=== PATIENT | male | born 1960 | race Caucasian/White ===

== ENCOUNTER 2022-11-16 05:52 | Observation (INO) ==
--- NOTE | 2022-10-19 15:38 | PAT Medication Instructions ---
Medication Instructions Date of Service October 19, 2022 Home Medications Medication Instructions Recorded tizanidine 4 mg tablet 4 mg PO BID PRN muscle spasticity 09/23/22 #30 tabs albuterol sulfate 90 mcg/actuation aerosol inhaler 1 inh inhalation UD PRN SHORT OF BREATH duloxetine 60 mg capsule,delayed release 60 mg PO HS ergocalciferol (vitamin D2) 1,250 mcg (50,000 unit) capsule 5,000 mcg PO WK gabapentin 400 mg capsule 400 mg PO TID ibuprofen 800 mg tablet 800 mg PO TID lamotrigine 100 mg tablet 100 mg PO QPM omeprazole 20 mg capsule,delayed release 20 mg PO HS rosuvastatin 20 mg tablet 20 mg PO HS tizanidine 4 mg tablet 4 mg PO BID PRN muscle spasticity Medical Marijuana 1 dose inhalation UD PRN Pain dulaglutide 4.5 mg/0.5 mL subcutaneous pen injector (Trulicity) 4.5 mg subcut WK gabapentin 800 mg tablet 800 mg PO TID olmesartan 40 mg-hydrochlorothiazide 25 mg tablet (Benicar HCT) 1 tab PO HS Continue as directed ergocalciferol (vitamin D2) 1,250 mcg (50,000 unit) capsule 5,000 mcg PO WK (just do not take morning of surgery) dulaglutide 4.5 mg/0.5 mL subcutaneous pen injector (Trulicity) 4.5 mg subcut WK ASK your surgeon for instructions ibuprofen 800 mg tablet 800 mg PO TID DO NOT take the morning of surgery tizanidine 4 mg tablet 4 mg PO BID PRN muscle spasticity Medical Marijuana 1 dose inhalation UD PRN Pain Take morning of surgery With a small sip of water, OTHERWISE NOTHING TO EAT OR DRINK AFTER MIDNIGHT: albuterol sulfate 90 mcg/actuation aerosol inhaler 1 inh inhalation UD PRN SHORT OF BREATH (use if needed; please bring with you to hospital day of surgery if possible) gabapentin 400 mg capsule 400 mg PO TID gabapentin 800 mg tablet 800 mg PO TID Take evening before surgery albuterol sulfate 90 mcg/actuation aerosol inhaler 1 inh inhalation UD PRN SHORT OF BREATH (if needed) duloxetine 60 mg capsule,delayed release 60 mg PO HS gabapentin 400 mg capsule 400 mg PO TID lamotrigine 100 mg tablet 100 mg PO QPM omeprazole 20 mg capsule,delayed release 20 mg PO HS rosuvastatin 20 mg tablet 20 mg PO HS tizanidine 4 mg tablet 4 mg PO BID PRN muscle spasticity (if needed) Medical Marijuana 1 dose inhalation UD PRN Pain (if needed) gabapentin 800 mg tablet 800 mg PO TID olmesartan 40 mg-hydrochlorothiazide 25 mg tablet (Benicar HCT) 1 tab PO HS Other Notes If you have any questions please call us at [phone] or [phone] or [phone] or [phone]
--- NOTE | 2022-10-21 14:13 | Anesthesiology Consultation ---
Date of Service October 21, 2022 Assessment & Plan (1) Encounter for pre-operative examination: Chart Review Chart Review: Pending: Refer to Additional Notes / Consult section (pending response from PCP and improvement in Na ) and Patient seen in Pre Admission Testing -Optimization to PCP re: significant hyponatremia- need response. - Discussed with Dr. Newman- Na of 122 - did speak with PCP office late afternoon on 10/21/22- patient's last Na was 131 per PCP records. PCP did recommend patient go to ER for evaluation. Did call patient and recommend he go to ER. Pt adamantly refused- pt voices understanding he at risk for seizure, , etc. Pt states he will "eat more salt." Will follow up with PCP (send optimization) - will need Na correction prior to surgery. PCP office also called 10/22/22 to communicate patient's ER refusal. (Incident report done in [facility] system) - Check BSG AM DOS Per PAT appt on 10/21/22, patient denies any recent travel or large group activities. Pt is vaccinated for Covid. Will leave to surgeon's discretion if preop Covid testing needed. Educated on importance of using Covid precautions one week prior to surgery Teaching & Discussion Pre-Anesthesia Teaching/Discussion Notes: Instructed NPO after midnight before surgery,except medications with 15 cc of water. Medication instructions provided according to the PAT guidelines. History Surgery Operation Date: 11/16/22 07:15 Proposed Procedures p C5-6 and C6-7 Cervical Disc Arthroplasty - Charlie Pollack MD Height/Weight Height: 6 ft 1 in Weight: 104.6 kg Allergies Allergy/AdvReac Type Severity Reaction Status Date / Time fenofibrate [From Tricor] Allergy Severe ELEVATED Verified 10/19/22 14:20 LIVER ENZYMES metformin AdvReac Mild Gastrointestinal Verified 10/19/22 14:20 Upset Opioids - Morphine Analogues AdvReac Mild ITCHING Verified 10/19/22 14:20 Medications Home Medications Medication Instructions Recorded Confirmed Last Taken albuterol sulfate 90 mcg/actuation 1 inh inhalation UD PRN SHORT OF 09/23/22 10/19/22 Unknown aerosol inhaler BREATH duloxetine 60 mg capsule,delayed 60 mg PO HS 09/23/22 10/19/22 Unknown release ergocalciferol (vitamin D2) 1,250 5,000 mcg PO WK 09/23/22 10/19/22 Unknown mcg (50,000 unit) capsule gabapentin 400 mg capsule 400 mg PO TID 09/23/22 10/19/22 Unknown ibuprofen 800 mg tablet 800 mg PO TID 09/23/22 10/19/22 Unknown lamotrigine 100 mg tablet 100 mg PO QPM 09/23/22 10/19/22 Unknown omeprazole 20 mg capsule,delayed 20 mg PO HS 09/23/22 10/19/22 Unknown release rosuvastatin 20 mg tablet 20 mg PO HS 09/23/22 10/19/22 Unknown tizanidine 4 mg tablet 4 mg PO BID PRN muscle spasticity 09/23/22 10/19/22 Unknown #30 tabs Medical Marijuana 1 dose inhalation UD PRN Pain 10/19/22 10/19/22 Unknown dulaglutide 4.5 mg/0.5 mL 4.5 mg subcut WK 10/19/22 10/19/22 Unknown subcutaneous pen injector (Trulicity) gabapentin 800 mg tablet 800 mg PO TID 10/19/22 10/19/22 Unknown olmesartan 40 1 tab PO HS 10/19/22 10/19/22 Unknown mg-hydrochlorothiazide 25 mg tablet (Benicar HCT) Past Medical History Medical History (Updated 10/22/22 @ 15:52 by Luz Maria Peter PA-C) Arthritis Asthma LAST USED RESCUE INHALER>1 WEEK AGO BREATHING STABLE Degenerative disc disease Diabetes mellitus, type 2 Glucose well controlled GERD (gastroesophageal reflux disease) Well controlled and stable High cholesterol Hip pain Bilateral History of COVID-19 "HAD IT 3 TIMES">LAST HAD 4 MONTHS AGO (UNSURE IF HAS ANY MCFP PROBLEMS FROM COVID) POSSIBLE RESIDUAL MENTAL FOG AND FATIGUE Hx of squamous cell carcinoma S/p removal Hypertension Peripheral neuropathy Mostly noted to feet Post traumatic stress disorder Restless leg syndrome Stable Right knee pain Torn MCL/ACL - ongoing right knee pain Seizures "PASSES OUT" LAST EPISODE 2015 (DOES NOT FOLLOW WITH NEUROLOGY) ON LAMICTAL Spinal stenosis Exercise / Class Metabolic Activity II 4-5 Yardwork/Stairs/Walk up hill (one flight of stairs - no chest pain or SOB) Past Family History Family History (Updated 10/19/22 @ 14:31 by Stephanie Felix RN) Other No family history of adverse response to anesthesia Past Surgical History Surgical History (Updated 10/21/22 @ 14:08 by Luz Maria Peter PA-C) H/O squamous cell carcinoma excision History of colonoscopy History of esophagogastroduodenoscopy (EGD) History of surgery on lower extremity LEFT FEMUR TENDON REPAIR- 2019 [place] teeth removed Past Anesthesia History No Hx of Anesthesia Complications and No Family Hx of Anesthesia Complications History of PONV No Hx of PONV and No Hx of Motion Sickness Social History Smoking Status: Never smoker tobacco type: smokeless tobacco Do You Dip or Chew Tobacco: Yes (1 can/2-4 days- ADVISED) Hx Alcohol Use: Yes alcohol intake frequency: holidays/special occasions only Hx Substance Use: No Review of Systems Patient denies chest pain, shortness of breath, dyspnea on exertion, reflux, cough, wheezing, palpitations. No hx of stroke, IL, apnea/snoring. No hx of blood clots or blood transfusions Physical Exam Vital Signs VITALS BP 111/72 P 78 TEMP 98.3 SP02 95% RESP 16 Constitutional no acute distress ENMT Mouth: no TMJ clicking Thyromental Distance: > or= 3.5 Finger Breadths Mallampati Class: II Neck neck extension not limited Respiratory normal respiratory effort; no respiratory distress Auscultation: lungs clear to auscultation bilaterally; no wheezes Cardiovascular Rate/Rhythm: regular rate and regular rhythm Heart Sounds: no murmur Vessels: no carotid bruit Musculoskeletal Spine: no pain with cervical ROM Extremities: extremities normal to inspection Psychiatric Orientation: alert Lab Results Anesthesia Preop Results Results Anesthesia Widget: WBC 7.00 K/ul (4.8-10.8) 10/21/22 Hgb 13.6 g/dl (14.0-18.0) L 10/21/22 Hct 36.9 % (42.0-52.0) L 10/21/22 Plt 319 K/uL (130-400) 10/21/22 Na 122 mmol/L (136-145) L 10/21/22 K 4.1 mmol/L (3.5-5.1) 10/21/22 Cl 90 mmol/L (98-107) L 10/21/22 CO2 23 mmol/L (21-32) 10/21/22 BUN 22 mg/dl (6-23) 10/21/22 Creat 1.01 mg/dl (0.6-1.4) 10/21/22 Glucose Level 135 mg/dl (70-99(Fasting)) H 10/21/22 PT 10.8 Seconds (9.0-12.0) 10/21/22 PTT 29.6 Seconds (21.0-31.0) 10/21/22 INR 1.0 (0.9-1.1) 10/21/22 HA1c 6.5 % (4.5-5.6) H 10/21/22 Blood Type O Positive 10/21/22 Antibody Screen NEGATIVE 10/21/22 Testing Laboratory Results Significant hyponatremia- patient refused ER evaluation- optimization note sent to PCP Electrocardiogram Date: 10/21/22 NSR with sinus arrhythmia at 81bpm Left axis deviation COVID-19 Risk Screen Screening Information COVID-19 Screen Date: 10/21/22 Exposure 21 Days Family/Household +COVID Last 21 Days: No Exposure 10 Days Any COVID Exposure Last 10 Days: No Symptoms Last 10 Days Experienced COVID Sx Last 10 Days: No + COVID 0-90 Days COVID + in Last 0-90 Days: No Risk Plan COVID Risk Plan: No Risk Identified Patient Education COVID Preop Screening Education Complete: Yes
[2022-11-16] MEDS ORDERED: LR 60ML/HR IV SCH (06:00)
[2022-11-16] MEDS ORDERED: LR 15ML/HR IV SCH (06:00)
[2022-11-16] MEDS ORDERED: ceFAZolin 2000MG 2,000 MG/15 ML SYR IV SCH (06:00)
[2022-11-16] MEDS ORDERED: MIDAZOLAM HCL 1 MG/ML 2ML VIAL ONE (06:50)
[2022-11-16] MEDS ORDERED: fentaNYL citrate PF 100 MCG/2 ML VIAL ONE ×2 (06:50→08:44)
[2022-11-16] MEDS ORDERED: VANCOMYCIN HCL 1000MG/20ML VIAL ONE (07:03)
[2022-11-16] MEDS ORDERED: GELATIN SPONGE SZ 100 ONE (07:03)
[2022-11-16] MEDS ORDERED: THROMBIN 5000 UNITS KIT ONE (07:03)
--- NOTE | 2022-11-16 07:06 | History & Physical Report ---
Date of Service November 16, 2022 History of Present Illness Primary Care Provider: [facility] returns for follow-up status post his cervical MRI repeated on September 29. He reports no new changes. He has a combination of pain in both shoulders and both arms and neck, the pain is more so though on the left side and the numbness and tingling is more to the left side also. He reports the tramadol did not help to any significant extent, no other issues reported. Exam revealed that with range of motion of both his shoulders he did not have a significant amount of reproduction of his left shoulder pain outside of mildly reproduced with the empty can test. Review of cervical MRI images from September 29, 2022, this is my separate review of the study from [facility] in [place], this reveals the patient to have degenerative changes notably at C5-6 and C6-7, there is loss of disc base height and spondylosis evident, there is narrowing in the canal at least in the mild to moderate range with severe foraminal stenosis bilaterally at both levels. C4-5 has a very slight amount of anterolisthesis, the disc base height is maintained at this level and he C2-3 and C3-4 levels. I would consider more moderate foraminal stenosis at the C4-5 level on the left, and mild to low-grade moderate at C3-4. Impression: Cervical disc degeneration along with symptoms consistent with radiculopathy and cervical axial symptomatology. Plan: Today was an extensive discussion with review of the MRI and radiographs and then discussing the treatment options. The patient does have an upcoming EMG nerve conduction study at the beginning of November we will continue with that study, but I then went on to discuss what I think would be appropriate operative treatment in the cervical spine. I related that I think the most significant findings are at C5-6 and C6-7, C4-5 does have some foraminal stenosis and that could be contributing to the pain radiating to the shoulders, but I think there is also a shoulder component to this though it may be low-grade. Also, relative to his upper extremity symptoms there may be a peripheral entrapment component hence us continuing along with the EMG nerve conduction study. At this time I related I would recommend an anterior approach to C5-6 and C6-7, anterior decompression, and disc arthroplasty as the goal, arthrodesis would be the backup if found to be necessary. I went on to explain the differences between the 2 procedures, explaining that I think if we could maintain some motion in the lower 2 segments with the disc arthroplasty that would be to his benefit, but he still may continue to have some change in his upper cervical spine and it could be that the C4-5 level is causing some C5 radiculopathy but we will also wait to see with the EMG nerve conduction study sets. I went on to the discussion about the fact that disc arthroplasty can be only performed at 1 or 2 levels at a time, and we would be addressing the levels with the most amount of foraminal stenosis at this time. The discussion also included discussion of the hospital stay, postoperative course, restrictions, and a discussion of potential risk complications which included discussion of infection, possibilities of neurologic injury, postoperative dysphagia. Went on to explain that anticipating this procedure will help with his upper extremity symptoms at least in part if not significantly, along with at least a portion of the cervical axial symptoms though he may still continue to have some cervical axial symptoms either from the facets or the upper disc levels. I related that for any remaining symptoms the patient may have, we may have to evaluate his shoulders and a more extensive manner with some injections and/or therapy, also see with the EMG nerve conduction study reveals, and additional blocks and/or injections might be necessary if he continues to have axial symptoms. They were in agreement with this plan or to get him scheduled in the near future. Allergies Allergy/AdvReac Type Severity Reaction Status Date / Time fenofibrate [From Tricor] Allergy Severe ELEVATED Verified 11/16/22 06:22 LIVER ENZYMES metformin AdvReac Mild Gastrointestinal Verified 11/16/22 06:22 Upset Opioids - Morphine Analogues AdvReac Mild ITCHING Verified 11/16/22 06:22 Home Medications Medication Instructions Recorded Confirmed Type albuterol sulfate 90 mcg/actuation 1 inh inhalation UD PRN SHORT OF 09/23/22 11/16/22 History aerosol inhaler BREATH duloxetine 60 mg capsule,delayed 60 mg PO HS 09/23/22 11/16/22 History release ergocalciferol (vitamin D2) 1,250 5,000 mcg PO WK 09/23/22 11/16/22 History mcg (50,000 unit) capsule gabapentin 400 mg capsule 400 mg PO TID 09/23/22 11/16/22 History ibuprofen 800 mg tablet 800 mg PO TID 09/23/22 11/16/22 History lamotrigine 100 mg tablet 100 mg PO QPM 09/23/22 11/16/22 History omeprazole 20 mg capsule,delayed 20 mg PO HS 09/23/22 11/16/22 History release rosuvastatin 20 mg tablet 20 mg PO HS 09/23/22 11/16/22 History tizanidine 4 mg tablet 4 mg PO BID PRN muscle spasticity 09/23/22 11/16/22 Rx #30 tabs Medical Marijuana 1 dose inhalation UD PRN Pain 10/19/22 11/16/22 History dulaglutide 4.5 mg/0.5 mL 4.5 mg subcut WK 10/19/22 11/16/22 History subcutaneous pen injector (Trulicity) gabapentin 800 mg tablet 800 mg PO TID 10/19/22 11/16/22 History olmesartan 40 1 tab PO HS 10/19/22 11/16/22 History mg-hydrochlorothiazide 25 mg tablet (Benicar HCT) Past Med/Surg History Medical History (Updated 10/22/22 @ 15:52 by Luz Maria Peter PA-C) Arthritis Asthma LAST USED RESCUE INHALER>1 WEEK AGO BREATHING STABLE Degenerative disc disease Diabetes mellitus, type 2 Glucose well controlled GERD (gastroesophageal reflux disease) Well controlled and stable High cholesterol Hip pain Bilateral History of COVID-19 "HAD IT 3 TIMES">LAST HAD 4 MONTHS AGO (UNSURE IF HAS ANY FPC PROBLEMS FROM COVID) POSSIBLE RESIDUAL MENTAL FOG AND FATIGUE Hx of squamous cell carcinoma S/p removal Hypertension Peripheral neuropathy Mostly noted to feet Post traumatic stress disorder Restless leg syndrome Stable Right knee pain Torn MCL/ACL - ongoing right knee pain Seizures "PASSES OUT" LAST EPISODE 2015 (DOES NOT FOLLOW WITH NEUROLOGY) ON LAMICTAL Spinal stenosis Surgical History (Updated 10/21/22 @ 14:08 by Luz Maria Peter PA-C) H/O squamous cell carcinoma excision History of colonoscopy History of esophagogastroduodenoscopy (EGD) History of surgery on lower extremity LEFT FEMUR TENDON REPAIR- 2019 [place] teeth removed Family History (Updated 10/19/22 @ 14:31 by Stephanie Felix RN) Other No family history of adverse response to anesthesia Social History Smoking Status: Never smoker Second Hand Exposure: Yes (IN THE PAST>EX- SMOKED); Do You Dip or Chew Tobacco: Yes (1 can/2-4 days- ADVISED); Hx Alcohol Use: Yes Hx Substance Use: No Preferred Language: Syriac Director [employer] Required: No Beliefs That Will Affect Care: None Current Living Situation: Spouse Feels Safe at Home: Yes Safety Concerns: Feels Safe At This Time Assistive Devices: Cane and Glasses Assistive Devices Comment: READING GLASSES Results & Data Results & Data Vital Signs (Past 12 Hours) Vital Signs Temp Pulse Resp BP Pulse Ox O2 Del Method 11/16/22 06:28 36.6 C 82 18 129/79 96 Room Air
--- NOTE | 2022-11-16 07:07 | History & Physical Bridge Note ---
Date of Service November 16, 2022 History & Physical Bridge Note I have examined the patient, reviewed the History & Physical and in the interval since the performance of the History & Physical I have noted the following changes of clinical significance: no changes noted
[2022-11-16] MEDS ORDERED: LIDOCAINE 2% MPF LOCAL 5 ML VIAL ONE (08:29)
[2022-11-16] MEDS ORDERED: GLYCOPYRROLATE 0.2 MG/ML VIAL ONE (08:29)
[2022-11-16] MEDS ORDERED: diphenhydrAMINE 50 MG/ML VIAL ONE (08:29)
[2022-11-16] MEDS ORDERED: PROPOFOL IV EMULSION 10 MG/ML 20 ML VIAL IV ONE (08:29)
[2022-11-16] MEDS ORDERED: ROCURONIUM BROMIDE 10 MG/ML 5 ML VIAL IV ONE ×3 (08:29→10:17)
[2022-11-16] MEDS ORDERED: DEXAMETHASONE SOD INJ 4 MG/ML VIAL ONE (08:29)
[2022-11-16] MEDS ORDERED: NEOSTIGMINE METHYLSULFATE 1 MG/ML 10ML VIAL ONE (08:29)
[2022-11-16] MEDS ORDERED: ONDANSETRON INJ 2 MG/ML 2 ML VIAL ONE ×2 (08:29→12:06)
[2022-11-16] MEDS ORDERED: HYDROmorphone INJ 2 MG/ML SYR/VIAL ONE (08:31)
[2022-11-16] MEDS ORDERED: ONDANSETRON INJ 2 MG/ML 2 ML VIAL IV PRN ×2 (08:44→14:24)
[2022-11-16] MEDS ORDERED: ePHEDrine sulfate 50 MG/ML AMP IV PRN (08:44)
[2022-11-16] MEDS ORDERED: ATROPINE SULFATE 0.1 MG/ML 10ML SYR IV PRN (08:44)
[2022-11-16] MEDS ORDERED: ACETAMINOPHEN 1000 MG/100 ML IV IV ONE (08:58)
[2022-11-16] MEDS ORDERED: SUGAMMADEX SODIUM 200 MG/2 ML VIAL IV ONE (11:10)
[2022-11-16] MEDS ORDERED: FLOSEAL HEMOSTATIC MATRIX 5ML TOP ONE (11:34)
[2022-11-16] MEDS ORDERED: ceFAZolin 330 MG/ML 1 GM VIAL ONE (11:56)
[2022-11-16] MEDS ORDERED: ceFAZolin 2000MG 2,000 MG/15 ML SYR IV ONE (12:08)
[2022-11-16] MEDS ORDERED: KETOROLAC 30 MG/ML VIAL ONE (12:16)
--- NOTE | 2022-11-16 12:35 | Fluoroscopy Report ---
FL cervical 2-3V CLINICAL HISTORY: C5-C6 AND C6-C7 COMPARISON STUDY: Cervical spine radiographs 09/23/2022 FLUOROSCOPY TIME: 286.8 seconds FLUOROSCOPY IMAGES: 8 EXPOSURE DOSE: 412.25 mGy FINDINGS: Retractors are imaged. Discectomy changes are noted within the mid to lower cervical spine, exact numbering is not definitive based on magnification of the images. Note that the images were smith bmitted following completion of the surgery. The operative levels appear to be at C5-C6 and C6-C7. No unexpected opaque foreign bodies identified. IMPRESSION: Fluoroscopic assistance as above. ACT 112: Negative or not required by law. Electronically signed by: Rene Arora M.D. 11/16/2022 12:34 PM
[2022-11-16] MEDS: fentaNYL citrate PF 100 MCG/2 ML VIAL IV PRN ×4 (12:40→12:55)
--- NOTE | 2022-11-16 12:40 | Post Operative Brief Note ---
PG Immediate Post Op with CF Date of Surgery November 16, 2022 Pre & Post Diagnosis Operation Date: 11/16/22 07:15 Pre-Op Diagnosis: Cervical Rediculopathy, Neck Pain Post-Op Diagnosis: Cervical Rediculopathy, Neck Pain I identified the patient and participated in the time-out.: Yes Procedure Operation Date: 11/16/22 07:15 Actual Procedures p C5-6 and C6-7 Cervical Disc Arthroplasty(Not Applicable) - Charlie Pollack MD Surgeon Charlie Pollack MD Manager [place] none Estimated Blood Loss 50 Findings Consistent with Post-Op Diagnosis Specimens Specimen Description: None per surgeon
[2022-11-16] MEDS: HYDROmorphone INJ 1 MG/ML SYRINGE IV PRN ×3 (13:00→13:11)
[2022-11-16] MEDS ORDERED: LABETALOL HCL IV 5 MG/ML 20ML IV ONE (13:16)
[2022-11-16] MEDS ORDERED: LABETALOL HCL IV 5 MG/ML 20ML IV STA (13:16)
[2022-11-16] MEDS ORDERED: LACTATED RINGER'S 1,000 ML IV SCH (14:24)
[2022-11-16] MEDS ORDERED: FAMOTIDINE 20 MG TAB PO PRN (14:24)
[2022-11-16] MEDS ORDERED: diphenhydrAMINE Capsule 25 MG CAP PO PRN (14:24)
[2022-11-16] MEDS ORDERED: ACETAMINOPHEN 500 MG TAB PO PRN (14:24)
[2022-11-16] MEDS ORDERED: tiZANidine HCL 4 MG TABLET PO PRN (14:24)
[2022-11-16] MEDS ORDERED: METOCLOPRAMIDE HCL INJ 5 MG/ML 2 ML VIAL IV PRN (14:24)
[2022-11-16] MEDS ORDERED: NALOXONE HCL 0.4 MG/1 ML VIAL/CARP IV PRN (14:24)
[2022-11-16] MEDS ORDERED: SOD PHOSPHATE/SOD BIPHOSPHATE ENEMA 132 ML BTL PR PRN (14:24)
[2022-11-16] MEDS ORDERED: dexAMETHasone 8 MG in SYRINGE 0 ML IV PRN (14:24)
[2022-11-16] MEDS ORDERED: ERGOCALCIFEROL 50,000 UNITS 1250 MCG CAP PO SCH (14:24)
[2022-11-16] MEDS ORDERED: DO NOT ADMINISTER FLU VACCINE PRN (14:24)
[2022-11-16] MEDS ORDERED: hydrOXYzine HCl 25 MG TAB PO PRN (14:24)
[2022-11-16] MEDS ORDERED: DO NOT ADMINISTER PNEUMOCOCCAL VACCINE PRN (14:24)
[2022-11-16] MEDS ORDERED: MAGNESIUM HYDROXIDE SUSP 30 ML UDC PO PRN (14:24)
[2022-11-16] MEDS ORDERED: ONDANSETRON 4 MG OD TAB PO PRN (14:24)
[2022-11-16] MEDS ORDERED: ACETAMINOPHEN 1,000 MG/100 ML VIAL IV PRN (14:24)
[2022-11-16] MEDS ORDERED: RACEPINEPHRINE 2.25% NEBU SOLN 0.5 ML VIAL INH PRN (14:24)
[2022-11-16] MEDS ORDERED: PROMETHAZINE HCL 12.5 MG in SODIUM CHLORIDE 0.9% 50 ML IV PRN (14:24)
[2022-11-16] MEDS ORDERED: LORazepam 2 MG/1 ML VIAL IV PRN (14:24)
[2022-11-16] MEDS ORDERED: LORazepam 0.5 MG TAB PO PRN (14:24)
[2022-11-16] MEDS ORDERED: ALBUTEROL HFA 8 GM INHALER INH PRN (14:24)
[2022-11-16] MEDS ORDERED: bisacodyL 10 MG SUPP PR PRN (14:24)
[2022-11-16] MEDS ORDERED: ALUMINUM/MAGNESIUM SUSP 30 ML UDC PO PRN (14:24)
--- NOTE | 2022-11-16 14:24 | Anesthesiology Progress Note ---
Date of Service November 16, 2022 Anesthesia Post Procedure Vital Signs Vital Signs: Temp Pulse Pulse Resp BP Pulse Ox O2 Del Method 11/16/22 13:40 91 H 13 164/98 H 96 Room Air 11/16/22 13:10 108 H 20 179/99 H 98 Oxymask 11/16/22 14:00 92 H 13 156/91 H 96 Room Air 11/16/22 13:30 36.3 C L 106 H 10 L 151/90 H 99 Room Air 11/16/22 13:20 108 H 20 120/93 98 Oxymask 11/16/22 13:00 111 H 16 181/99 H 99 Oxymask 11/16/22 12:50 116 H 10 L 174/95 H 98 Oxymask 11/16/22 12:40 117 H 13 183/95 H 96 Oxymask 11/16/22 12:31 36.3 C L 126 H 10 L 175/89 H 99 Oxymask 11/16/22 06:28 36.6 C 82 18 129/79 96 Room Air O2 Flow Rate 11/16/22 13:40 11/16/22 13:10 5 11/16/22 14:00 11/16/22 13:30 11/16/22 13:20 2 11/16/22 13:00 5 11/16/22 12:50 5 11/16/22 12:40 5 11/16/22 12:31 7 11/16/22 06:28 Pain Intensity Neck: Pain Intensity: 4 Transfer of Care Handoff Completed per policy Notes Mental Status: alert / awake / arousable and participated in evaluation Patient Amnestic to Procedure: Yes Nausea / Vomiting: adequately controlled Pain: adequately controlled Airway Patency, RR, SpO2: stable & adequate BP & HR: stable & adequate Hydration State: stable & adequate Anesthetic Complications: no major complications apparent and Pt Satisfied with anesthetic care
[2022-11-16] MEDS: GABAPENTIN 800 MG TAB PO SCH ×2 (15:54→21:08)
[2022-11-16] MEDS: IBUPROFEN 800 MG TAB PO SCH ×2 (15:55→21:09)
[2022-11-16] MEDS: GABAPENTIN 400 MG CAP PO SCH ×2 (15:56→21:09)
[2022-11-16] MEDS: KETOROLAC 30 MG/ML VIAL IV SCH ×2 (15:56→19:44)
[2022-11-16] MEDS: HYDROmorphone INJ 0.5 MG/0.5 ML SYR IV PRN (17:21)
[2022-11-16] MEDS: oxyCODONE/ACETAMINOPHEN 5mg/325mg TAB PO PRN ×2 (19:44→23:52)
[2022-11-16] MEDS ORDERED: ROSUVASTATIN CALCIUM 20 MG TAB PO SCH (21:00)
[2022-11-16] MEDS ORDERED: lamoTRIgine 100 MG TAB PO SCH (21:00)
[2022-11-16] MEDS ORDERED: LOSARTAN/HCTZ 50/12.5MG TAB PO SCH (21:00)
[2022-11-16] MEDS ORDERED: DOCUSATE SODIUM/SENNA 50/8.6MG TAB PO SCH (21:00)
[2022-11-16] MEDS ORDERED: PANTOprazole 40 MG TAB PO SCH (21:00)
[2022-11-16] MEDS ORDERED: DULoxetine HCL 60 MG CAP PO SCH (21:00)
[2022-11-17] MEDS: HYDROmorphone INJ 0.5 MG/0.5 ML SYR IV PRN ×2 (01:24→07:08)
[2022-11-17] MEDS: KETOROLAC 30 MG/ML VIAL IV SCH ×2 (02:25→08:42)
[2022-11-17] MEDS: POLYETHYLENE (MIRALAX) 17 GM PACK PO SCH ×2 (05:19→12:25)
[2022-11-17] MEDS: oxyCODONE/ACETAMINOPHEN 5mg/325mg TAB PO PRN ×2 (05:19→10:27)
--- NOTE | 2022-11-17 08:09 | Hospitalist Consultation ---
Date of Consultation November 17, 2022 Assessment & Plan (1) Hypertension: BP today 164/84 Patient taking BenicarHCT 40/25 at home Rx Hyzaar 50/12.5mg 2 tabs q hs here Continue heart healthy carb consistent low sodium diet (2) Diabetes mellitus, type 2: Last HgbA1C 6.5 - 10/21/22 Continue to follow with PCP (3) Cervical radiculopathy: Post Op day #1 - p C5-6 and C6-7 Cervical Disc Arthroplasty(Not Applicable) - Charlie Pollack MD (4) Asthma: Has albuterol prn use at home (5) Seizures: - Continue Lamictal -follows with PCP (6) High cholesterol: - Continue Rosuvastatin 20mg History of Present Illness Reason for Consultation: medical management of hypertension Attending Physician: Charlie Pollack MD History of Present Illness Jeet Dill is A 62 year old with a past medical history of hypertension, hyper lipidemia, Type I diabetes, asthma, OA and history of seizures who was admitted with cervical radiculopathy and underwent C5-6 and C6-7 cervical disc arthroplasty yesterday with Dr Pollack. A medicine consult was placed last evening for elevated blood pressure. Patient's BP has improved today. He was placed on Hyzaar 50/12.5 2 pills q hs (hospital equivalent to his home medication BenicarHCT 40/25) He states his BP has been controlled at home. He states he is feeling great and hoping to be discharged to home today. He is passing flatus but no BM yet. He deneis any chest pain, SOB, cough, dyspnea, abdominal pain or nausea or vomiting Allergies Allergy/AdvReac Type Severity Reaction Status Date / Time fenofibrate [From Tricor] Allergy Severe ELEVATED Verified 11/16/22 06:22 LIVER ENZYMES metformin AdvReac Mild Gastrointestinal Verified 11/16/22 06:22 Upset Opioids - Morphine Analogues AdvReac Mild ITCHING Verified 11/16/22 06:22 Home Medications Medication Instructions Recorded Confirmed Type albuterol sulfate 90 mcg/actuation 1 inh inhalation UD PRN SHORT OF 09/23/22 11/16/22 History aerosol inhaler BREATH duloxetine 60 mg capsule,delayed 60 mg PO HS 09/23/22 11/16/22 History release ergocalciferol (vitamin D2) 1,250 5,000 mcg PO WK 09/23/22 11/16/22 History mcg (50,000 unit) capsule gabapentin 400 mg capsule 400 mg PO TID 09/23/22 11/16/22 History ibuprofen 800 mg tablet 800 mg PO TID 09/23/22 11/16/22 History lamotrigine 100 mg tablet 100 mg PO QPM 09/23/22 11/16/22 History omeprazole 20 mg capsule,delayed 20 mg PO HS 09/23/22 11/16/22 History release rosuvastatin 20 mg tablet 20 mg PO HS 09/23/22 11/16/22 History tizanidine 4 mg tablet 4 mg PO BID PRN muscle spasticity 09/23/22 11/16/22 Rx #30 tabs Medical Marijuana 1 dose inhalation UD PRN Pain 10/19/22 11/16/22 History dulaglutide 4.5 mg/0.5 mL 4.5 mg subcut WK 10/19/22 11/16/22 History subcutaneous pen injector (Trulicity) gabapentin 800 mg tablet 800 mg PO TID 10/19/22 11/16/22 History olmesartan 40 1 tab PO HS 10/19/22 11/16/22 History mg-hydrochlorothiazide 25 mg tablet (Benicar HCT) Patient History Medical History Arthritis Asthma LAST USED RESCUE INHALER>1 WEEK AGO BREATHING STABLE Degenerative disc disease Diabetes mellitus, type 2 Glucose well controlled GERD (gastroesophageal reflux disease) Well controlled and stable High cholesterol Hip pain Bilateral History of COVID-19 "HAD IT 3 TIMES">LAST HAD 4 MONTHS AGO (UNSURE IF HAS ANY DRY CLEANER HAND PROBLEMS FROM COVID) POSSIBLE RESIDUAL MENTAL FOG AND FATIGUE Hx of squamous cell carcinoma S/p removal Hypertension Peripheral neuropathy Mostly noted to feet Post traumatic stress disorder Restless leg syndrome Stable Right knee pain Torn MCL/ACL - ongoing right knee pain Seizures "PASSES OUT" LAST EPISODE 2015 (DOES NOT FOLLOW WITH NEUROLOGY) ON LAMICTAL Spinal stenosis Surgical History H/O squamous cell carcinoma excision History of colonoscopy History of esophagogastroduodenoscopy (EGD) History of surgery on lower extremity LEFT FEMUR TENDON REPAIR- 2019 [place] teeth removed Family History Other No family history of adverse response to anesthesia Social History Smoking Status: Never smoker Second Hand Exposure: Yes (IN THE PAST>EX- SMOKED); Do You Dip or Chew Tobacco: Yes (1 can/2-4 days- ADVISED); Hx Alcohol Use: Yes Hx Substance Use: No Preferred Language: B[place] Communication Ability: Effective Meteorology Professor Required: No Beliefs That Will Affect Care: None Current Living Situation: Spouse Feels Safe at Home: Yes Safety Concerns: Feels Safe At This Time Assistive Devices: Cane Assistive Devices Comment: READING GLASSES Review of Systems Review of Systems: Pateint denies any chest pain, SOB, Dyspnea, cough, fever, chills, abdominal pain, N/V. All othr ROS negative unless stated above. Physical Exam Constitutional: WD/WN, vitals as above Neck: Surgical dressing left anterior neck Respiratory: normal respiratory effort, lungs clear to auscultation Cardiovascular: RRR, no murmur, no edema Gastrointestinal (Abdomen): normal bowel sounds, soft, nontender, no hepatosplenomegaly Musculoskeletal: knee brace in place Psychiatric: A+Ox3, euthymic affect Results & Data Results & Data Vital Signs (Past 12 Hours) Vital Signs Temp Pulse Pulse Resp BP BP Pulse Ox 11/17/22 07:53 36.9 C 86 17 164/84 H 96 11/17/22 07:05 88 16 98 11/17/22 06:54 36.9 C 91 H 18 168/84 H 98 11/17/22 05:15 36.9 C 78 16 158/76 H 96 11/17/22 03:10 36.6 C 89 18 160/88 H 96 11/17/22 01:50 182/80 H 172/80 H 11/17/22 02:09 93 H 16 96 11/17/22 00:15 37.0 C 88 18 180/92 H 170/80 H 98 11/16/22 22:15 93 H 16 93 11/16/22 23:15 37.1 C 80 16 170/80 H 97 11/16/22 21:15 36.6 C 83 16 167/85 H 99 O2 Del Method O2 Flow Rate 11/17/22 07:53 Room Air 11/17/22 07:05 Room Air 11/17/22 06:54 Nasal Cannula 2 11/17/22 05:15 Nasal Cannula 2 11/17/22 03:10 Nasal Cannula 2 11/17/22 01:50 11/17/22 02:09 Nasal Cannula 2 11/17/22 00:15 Nasal Cannula 2 11/16/22 22:15 Nasal Cannula 1.5 11/16/22 23:15 Nasal Cannula 2 11/16/22 21:15 Nasal Cannula 2 Laboratory Results Abnormal lab results 11/16/22 Range/Units 12:35 POC Glucose 167 H (70-99) mg/dl Diagnostic Findings Cervical Spine X-Ray 11/16/22 07:15 FL cervical 2-3V CLINICAL HISTORY: C5-C6 AND C6-C7 COMPARISON STUDY: Cervical spine radiographs 09/23/2022 FLUOROSCOPY TIME: 286.8 seconds FLUOROSCOPY IMAGES: 8 EXPOSURE DOSE: 412.25 mGy FINDINGS: Retractors are imaged. Discectomy changes are noted within the mid to lower cervical spine, exact numbering is not definitive based on magnification of the images. Note that the images were submitted following completion of the surgery. The operative levels appear to be at C5-C6 and C6-C7. No unexpected opaque foreign bodies identified. IMPRESSION: Fluoroscopic assistance as above. ACT 112: Negative or not required by law. Electronically signed by: Reen Arora M.D. 11/16/2022 12:34 PM PG Care Time/CCT Total # of Minutes Spent Total Time Spent with Patient: Total time spent is greater than 50% in coordination of care (as documented) at patient's floor/unit and/or counseling patient: Coding Level of Care Code None Diagnoses Hypertension I10 Diabetes mellitus, type 2 E11.9 Cervical radiculopathy M54.12 Asthma J45.909 Seizures R56.9 High cholesterol E78.00
[2022-11-17] MEDS: GABAPENTIN 400 MG CAP PO SCH (08:46)
[2022-11-17] MEDS: IBUPROFEN 800 MG TAB PO SCH (08:47)
[2022-11-17] MEDS: GABAPENTIN 800 MG TAB PO SCH (08:47)
--- NOTE | 2022-11-17 08:50 | Hospitalist Consultation ---
Date of Consultation November 17, 2022 Assessment & Plan (1) Hypertension: -Deferred antihypertensive treatment at this time. -Resume home antihypertensive regimen in the am. -Instructed nurse to contact if BP >180/100 again. History of Present Illness Attending Physician: Charlie Pollack MD History of Present Illness Was notified about consult for Jeet, who is now POD1 s/p C5-6, C6-7 Cervical Disc Arthroplasty for elevated blood pressures >180 (182/80). On arrival, patient is resting comfortably in bed. ROS negative. He denies headache, SOB, chest pain, vision changes, fever, diaphoresis or pain/paraesthesias of his extremities.Pain is well controlled. BP on recheck was improved at 160/88. Allergies Allergy/AdvReac Type Severity Reaction Status Date / Time fenofibrate [From Tricor] Allergy Severe ELEVATED Verified 11/16/22 06:22 LIVER ENZYMES metformin AdvReac Mild Gastrointestinal Verified 11/16/22 06:22 Upset Opioids - Morphine Analogues AdvReac Mild ITCHING Verified 11/16/22 06:22 Home Medications Medication Instructions Recorded Confirmed Type albuterol sulfate 90 mcg/actuation 1 inh inhalation UD PRN SHORT OF 09/23/22 11/16/22 History aerosol inhaler BREATH duloxetine 60 mg capsule,delayed 60 mg PO HS 09/23/22 11/16/22 History release ergocalciferol (vitamin D2) 1,250 5,000 mcg PO WK 09/23/22 11/16/22 History mcg (50,000 unit) capsule gabapentin 400 mg capsule 400 mg PO TID 09/23/22 11/16/22 History ibuprofen 800 mg tablet 800 mg PO TID 09/23/22 11/16/22 History lamotrigine 100 mg tablet 100 mg PO QPM 09/23/22 11/16/22 History omeprazole 20 mg capsule,delayed 20 mg PO HS 09/23/22 11/16/22 History release rosuvastatin 20 mg tablet 20 mg PO HS 09/23/22 11/16/22 History tizanidine 4 mg tablet 4 mg PO BID PRN muscle spasticity 09/23/22 11/16/22 Rx #30 tabs Medical Marijuana 1 dose inhalation UD PRN Pain 10/19/22 11/16/22 History dulaglutide 4.5 mg/0.5 mL 4.5 mg subcut WK 10/19/22 11/16/22 History subcutaneous pen injector (Trulicity) gabapentin 800 mg tablet 800 mg PO TID 10/19/22 11/16/22 History olmesartan 40 1 tab PO HS 10/19/22 11/16/22 History mg-hydrochlorothiazide 25 mg tablet (Benicar HCT) Patient History Medical History (Updated 11/17/22 @ 08:21 by Ledy Amador PA-C) Arthritis Asthma LAST USED RESCUE INHALER>1 WEEK AGO BREATHING STABLE Degenerative disc disease Diabetes mellitus, type 2 Glucose well controlled GERD (gastroesophageal reflux disease) Well controlled and stable High cholesterol Hip pain Bilateral History of COVID-19 "HAD IT 3 TIMES">LAST HAD 4 MONTHS AGO (UNSURE IF HAS ANY LONGTERM PROBLEMS FROM COVID) POSSIBLE RESIDUAL MENTAL FOG AND FATIGUE Hx of squamous cell carcinoma S/p removal Hypertension Peripheral neuropathy Mostly noted to feet Post traumatic stress disorder Restless leg syndrome Stable Right knee pain Torn MCL/ACL - ongoing right knee pain Seizures "PASSES OUT" LAST EPISODE 2015 (DOES NOT FOLLOW WITH NEUROLOGY) ON LAMICTAL Spinal stenosis Surgical History H/O squamous cell carcinoma excision History of colonoscopy History of esophagogastroduodenoscopy (EGD) History of surgery on lower extremity LEFT FEMUR TENDON REPAIR- 2019 [place] teeth removed Family History Other No family history of adverse response to anesthesia Social History Smoking Status: Never smoker Second Hand Exposure: Yes (IN THE PAST>EX- SMOKED); Do You Dip or Chew Tobacco: Yes (1 can/2-4 days- ADVISED); Hx Alcohol Use: Yes Hx Substance Use: No Preferred Language: Pashto Rubber Liner Required: No Beliefs That Will Affect Care: None Current Living Situation: Spouse Feels Safe at Home: Yes Safety Concerns: Feels Safe At This Time Assistive Devices: Cane and Glasses Assistive Devices Comment: READING GLASSES Review of Systems Review of Systems: All systems reviewed & are unremarkable except as noted in HPI & below Physical Exam Physical Exam: General: No acute distress HEENT: PERRLA. Normal conjunctiva, anicteric sclera. Oropharynx normal. Respiratory: Normal respiratory effort, CTABL. Cardiovascular: RRR without murmurs, gallops, or rubs. No edema. GI: Soft abdomen with normal bowel sounds heard on auscultation. Nontender x4 quadrants Neuro: Alert and oriented x3. Results & Data Results & Data Vital Signs (Past 12 Hours) Vital Signs Temp Pulse Pulse Resp BP BP Pulse Ox 11/17/22 07:53 36.9 C 86 17 164/84 H 96 11/17/22 07:05 88 16 98 11/17/22 06:54 36.9 C 91 H 18 168/84 H 98 11/17/22 05:15 36.9 C 78 16 158/76 H 96 11/17/22 03:10 36.6 C 89 18 160/88 H 96 11/17/22 01:50 182/80 H 172/80 H 11/17/22 02:09 93 H 16 96 11/17/22 00:15 37.0 C 88 18 180/92 H 170/80 H 98 11/16/22 22:15 93 H 16 93 11/16/22 23:15 37.1 C 80 16 170/80 H 97 11/16/22 21:15 36.6 C 83 16 167/85 H 99 O2 Del Method O2 Flow Rate 11/17/22 07:53 Room Air 11/17/22 07:05 Room Air 11/17/22 06:54 Nasal Cannula 2 11/17/22 05:15 Nasal Cannula 2 11/17/22 03:10 Nasal Cannula 2 11/17/22 01:50 11/17/22 02:09 Nasal Cannula 2 11/17/22 00:15 Nasal Cannula 2 11/16/22 22:15 Nasal Cannula 1.5 11/16/22 23:15 Nasal Cannula 2 11/16/22 21:15 Nasal Cannula 2 Resident Activity Tracking Resident Involvement: Resident Care Provided and Clinical Nursing Assistant Coverage Note Care Provided: Adult Hospital Medicine
--- NOTE | 2022-11-18 09:45 | Operative Report ---
PG Post Operative Report Pre & Post Diagnosis Operation Date: 11/16/22 07:15 Pre-Op Diagnosis: Cervical Rediculopathy, Neck Pain Post-Op Diagnosis: Cervical Rediculopathy, Neck Pain I identified the patient and participated in the time-out.: Yes Procedure Operation Date: 11/16/22 07:15 Actual Procedures p C5-6 and C6-7 Cervical Disc Arthroplasty(Not Applicable) - Charlie Pollack MD Preoperative diagnoses: Cervical stenosis radiculopathy Postoperative diagnosis: Same Procedure performed: 1. C5-6 and C6-7 anterior cervical decompression 2. Insertion of intervertebral devices, C5-6 and C6-7 artificial disc replacements, Mobi-C, 17 x 19 x 5 mm Procedure: Patient was taken the operating room and after adequate anesthesia was carefully positioned supine on the OSI flat top table. Patient was then positioned in usual fashion for an anterior approach of the cervical spine, and after checking for positioning, preprep was performed in the surgical area followed by bringing in fluoroscopy and I used this to manjinder for the area of the incision. This was then followed with prepping and draping, I began the procedure with a left-sided approach anterolaterally over the medial border of the sternocleidomastoid. I dissected down to the medial border of the sternocleidomastoid, then carefully down to the anterior aspect of the cervical spine or then confirmed our location fluoroscopically. I then mobilized tissues extending from C5 down to C7 followed by then placement of distractor pins first at C7 followed by C6 using fluoroscopic control. With this completed I then began the procedure at the C6-7 disc space, the anterior annulus was incised, I then moved this to the disc space with combination of curettes and pituitaries to remove the disc material to the posterior annulus. From here I then mobilized the posterior disc down to the dura out to the uncinates on both sides. With the decompression completed and cartilage removed from the endplates, I then went through sizing for the artificial disc, the size as stated was selected and placed without any difficulty with excellent position on AP and lateral views using fluoroscopic control. With this now complete, I then remove the C7 distractor pin, bone wax was applied to the whole followed by then placing this at C5. The retractors were then reset, in a similar fashion I then began the procedure removing some of the anterior osteophyte followed by then moving through the annulus anteriorly then the disc space in the similar fashion. Once the decompression was complete and the same fashion as C6-7, I then once again went through trials selecting the same size artificial disc replacement for this level, this was inserted without issues using fluoroscopic control. With the devices now in place, the distractor pins were removed bone wax was applied, final touchup work was completed, I then inspected the area no issues were noted, vancomycin powder was placed followed by closure using 3-0 Vicryl sutures and Steri-Strips. Sterile dressing was applied, the patient was taken to the recovery room satisfied condition. Surgeon Charlie Pollack MD Forestry Extension Specialist none Estimated Blood Loss 50 Findings Consistent with Post-Op Diagnosis Specimens None Description of Procedure As listed above I attest to the content of the Intraoperative Record and any orders documented therein. Any exceptions are noted below.
== END 2022-11-17 13:14 | disposition home or self-care (01) ==
LOC: ASU 05:52 → 3E 05:52